=== PATIENT | male | born 1975 | race Two or more races ===

== ENCOUNTER 2018-01-23 10:39 | Emergency (ER) | payer SELFPAY ==
[~2018-01-23] VITALS: Ht 175.3 cm; Wt 102.0 kg
[2018-01-23 11:05] VITALS: BP 140/84
[2018-01-23] MEDS ORDERED: DEXAMETHASONE 10 MG/ML VIAL IM ONE (11:45)
== END 2018-01-23 12:28 | disposition home or self-care (01) ==
LOC: ER 12:10
DX: T63.441A Toxic effect of venom of bees, accidental (unintentional), initial encounter (principal); Y92.89 Other specified places as the place of occurrence of the external cause; R03.0 Elevated blood-pressure reading, without diagnosis of hypertension
CPT/HCPCS: 96372; 99283; J1100